=== PATIENT | female | born 1990 | race American Indian/Alaskan Native ===

== ENCOUNTER 2017-10-04 11:45 | Emergency (ER) | payer MEDICAID, OTHER ==
[2017-10-04 12:00] VITALS: BP 121/85
--- NOTE | 2017-10-04 16:07 | Emergency Department Report ---
ED ENT HPI - General Chief complaint: Upper Respiratory Infection Stated complaint: COUGHING/RUNNY NOSE Time Seen by Provider: 10/04/17 15:58 Source: patient Mode of arrival: Ambulatory Limitations: No Limitations - History of Present Illness Initial comments: Reports moving to the area from [place] last March. Reports that she does not take anything for allergies. Reports sick contacts coughing as well MD complaint: ear pain (bilateral), other (congestion, rhinnorhea, cough worst at night ) -: days(s) Severity: mild Severity scale (0 -10): 1 Quality: aching Consistency: intermittent Worsens with: other (laying down at night) Associated Symptoms: cough, rhinorrhea. denies: fever, gum swelling, toothache , pain with swallowing, sore throat, tinnitus, hearing loss, discharge from ear - Related Data Previous Rx's Medication Instructions Recorded Last Taken Type Benzonatate [Tessalon Perles] 100 mg PO Q8HR PRN #15 capsule 10/04/17 Unknown Rx Loratadine [Claritin] 10 mg PO DAILY #14 tablet 10/04/17 Unknown Rx Allergies Allergy/AdvReac Type Severity Reaction Status Date / Time No Known Allergies Allergy Unverified 10/04/17 11:58 ED Dental HPI - General Chief complaint: Upper Respiratory Infection Stated complaint: COUGHING/RUNNY NOSE Time Seen by Provider: 10/04/17 15:58 Source: patient Mode of arrival: Ambulatory Limitations: No Limitations - Related Data Previous Rx's Medication Instructions Recorded Last Taken Type Benzonatate [Tessalon Perles] 100 mg PO Q8HR PRN #15 capsule 10/04/17 Unknown Rx Loratadine [Claritin] 10 mg PO DAILY #14 tablet 10/04/17 Unknown Rx Allergies Allergy/AdvReac Type Severity Reaction Status Date / Time No Known Allergies Allergy Unverified 10/04/17 11:58 ED Review of Systems ROS: Stated complaint: COUGHING/RUNNY NOSE Other details as noted in HPI Comment: All other systems reviewed and negative ED Past Medical Hx - Past Medical History Previous Medical History?: No - Surgical History Past Surgical History?: Yes Additional Surgical History: C/S - Medications Home Medications: Home Medications Medication Instructions Recorded Confirmed Last Taken Type Benzonatate [Tessalon Perles] 100 mg PO Q8HR PRN #15 capsule 10/04/17 Unknown Rx Loratadine [Claritin] 10 mg PO DAILY #14 tablet 10/04/17 Unknown Rx ED Physical Exam - General Limitations: No Limitations - Other Other exam information: GENERAL: Patient in no acute distress HEAD: Normocephalic, atraumatic EYES: PERRLA, EOM intact, no scleral icterus, visual pugh and acuity wnl NOSE: No tenderness, discharge, sinus tenderness MOUTH: No erythema, bleeding, exudate HEART: Regular rate and rhythm, no murmur, S1-S2 are auscultated, pulses are symmetric LUNGS: bilateral breath sounds. No wheezing, rales, rhonchi ABDOMEN: Normal bowel sounds, no tenderness, no rebound, no guarding, no masses , no CVA tenderness MUSCULOSKELETAL: Normal joint range of motion, no redness, no swelling, no tenderness NEUROLOGIC: GCS 15, Alert and Oriented x3, Cranial nerves intact, normal sensation, normal strength, normal gait, no cerebellar deficit SKIN: Skin is warm and dry, no wounds, no rashes EARS: No tenderness, discharge, tympanic membrane wnl ED Course Vital Signs 10/04/17 11:58 Temperature 98.9 F Pulse Rate 70 Respiratory 18 Rate Blood Pressure 121/85 O2 Sat by Pulse 98 Oximetry ED Medical Decision Making - Medical Decision Making Patient comfortable. Symptoms concerning for allergic rhinitis. Plan discharge with outpatient follow up. Patient agrees with plan and will return if symptoms worsen. Critical care attestation.: If time is entered above; I have spent that time in minutes in the direct care of this critically ill patient, excluding procedure time. ED Disposition Clinical Impression: Allergic rhinitis Qualifiers: Allergic rhinitis trigger: unspecified Allergic rhinitis seasonality: unspecified seasonality Qualified Code(s): J30.9 - Allergic rhinitis, unspecified Disposition: DC- TO HOME OR SELFCARE Is pt being admited?: No Condition: Stable Instructions: Allergies (ED) Prescriptions: Benzonatate [Tessalon Perles] 100 mg PO Q8HR PRN #15 capsule PRN Reason: Cough Loratadine [Claritin] 10 mg PO DAILY #14 tablet Referrals: PRIMARY CARE, [Primary Care Provider] - 3-5 Days Time of Disposition: 16:07
== END 2017-10-04 16:10 | disposition home or self-care (01) ==
LOC: ED 11:45
DX: J30.9 Allergic rhinitis, unspecified (principal)
CPT/HCPCS: 99281